=== PATIENT | male | born 1945 | race Caucasian/White ===

== ENCOUNTER 2017-05-24 07:41 | Observation (INO) | payer OTHER ==
[2017-05-24] MEDS ORDERED: diphenhydrAMINE 25 MG CAP PO ONE (07:45)
[2017-05-24] MEDS ORDERED: DIAZEPAM 5 MG TAB PO ONE (07:45)
[2017-05-24] MEDS ORDERED: ASPIRIN EC 325 MG TAB PO ONE (07:45)
[2017-05-24] MEDS ORDERED: FAMOTIDINE 20 MG TAB PO ONE (07:45)
[2017-05-24] MEDS ORDERED: NS 1,000 ML IV ONE (07:45)
--- NOTE | 2017-05-24 07:59 | CPEKG ---
Heart Rate: 58 RR Interval: 1034 P-R Interval: 180 QRSD Interval: 96 QT Interval: 428 QTC Interval: 421 P [place]: 54 QRS [place]: -10 T Wave [place]: 35 EKG Severity - NORMAL ECG - EKG Impression: SINUS RHYTHM Electronically Signed By: Layne Borjas 24-May-2017 12:00:08
[2017-05-24 08:12] LABS: PLATELET COUNT 174 10^3/uL (150-400)
[2017-05-24] MEDS ORDERED: IOPAMIDOL (ISOVUE-370) 150 ML BTL IV ONE (08:19)
[2017-05-24] MEDS ORDERED: MIDAZOLAM 2 MG/2 ML VIAL ONE ×2 (08:19→09:33)
[2017-05-24] MEDS ORDERED: fentaNYL 100 MCG/2 ML INJ ONE ×2 (08:19→09:33)
[2017-05-24] MEDS ORDERED: LIDOCAINE 1% 300 MG/30 ML SDV ONE (08:19)
[2017-05-24 08:21] LABS: INR 0.98 (0.83-1.16); PROTIME(PATIENT) 13.2 SEC (12.0-15.0)
--- NOTE | 2017-05-24 08:24 | PDHPUP ---
History & Physical Update H&P update statement: This history and physical update is based on an assessment of the patient which was completed after admission or registration (within 24 hours), but prior to the surgery/procedure. H&P update: H&P reviewed & patient examined, no change in patient's condition since H&P completed, changes noted
--- NOTE | 2017-05-24 08:25 | PDPROPOC ---
Sedation Plan of Care Sedation Plan of Care: vital signs stable, mental status noted, patient educated of risks, benefits, alternatives, patient can tolerate sedation ASA Classification: ASA 2 Planned drugs: fentanyl, midazolam Mallampati Score: Class 2 Mallampati Reference Image: Patient passed 3-3-2 rule?: Yes
[2017-05-24] MEDS ORDERED: HEPARIN 10,000 UNIT/10 ML MDV (1,000 UNIT/ML) ONE (09:11)
--- NOTE | 2017-05-24 09:22 | PDDXCAT ---
Diagnostic Cath Note - . Date: 05/24/17 Final Operations Technician: [place] Indication: CCC Class III and IV angina on medical treatment - Procedure Access: right groin Procedure: left heart catheterization, coronary angiography, left ventriculogram - Materials Left Heart Cath size: 6F Left Heart Cath materials: standard multipack (JL4, JR4, pigtail) - Findings-Left Heart Catheterization LM: Very short LM. Minor luminal irregularities (<10%) with bifurcation into the LAD and LCX vessels. LAD: Medium diameter vessel. Stented segment with 20% in stent stenosis noted. The principal diagonal in the ostial/proximal segment (just prior to stent) has an 80% stenosis noted. LCX: Medium diameter vessel. There is a critical lesion just prior to a trifurcation into small OM1/OM2 and the remainder of the LCX. RCA: Large, dominant vessel with supply into the PDA and SRINIVAS. There are two distal RCA lesions noted - more critical than than noted on prior angiography. Stenosis is >60%. EDP: 25 mm Hg LVEF: 65 Wall motion: normal Complications: none Estimated blood loss: <50ml Assessment: Critical lesions to the mid LCX (trifurcation) as well as what appears to be proximal to principal diagonal stent. There are two lesions in the distal portion of the RCA (proximal to PDA and SRINIVAS). Normal LVEF is noted. Plan: PCI to the LCX lesion. Would reassess the proximal diag lesion Intervention: Dr. Eduardo Monzon to perform PCI to the LCX lesion
[2017-05-24] MEDS ORDERED: ATROPINE SULFATE 1 MG/10 ML SYR IVP PRN (09:56)
[2017-05-24] MEDS ORDERED: NITROGLYCERIN 0.4 MG BTL SL PRN (09:56)
[2017-05-24] MEDS ORDERED: ONDANSETRON 4 MG/2 ML VIAL IVP PRN (09:57)
[2017-05-24] MEDS ORDERED: LORazepam 2 MG/ML INJ IVP PRN (09:57)
[2017-05-24] MEDS ORDERED: TEMAZEPAM 15 MG CAP PO PRN (09:57)
--- NOTE | 2017-05-24 10:01 | PDCTREPORT ---
Cardiothoracic Procedure Rpt Cardiothoracic Procedure Report: Procedure: PCI and stenting of the circumflex artery. Balloon angioplasty of the principal diagonal. Both in the setting of InStent restenosis and crescendo angina. After reviewing diagnostic angiograms by my partner Dr. Brennan Kessler, I am asked to perform PCI. Patient was anticoagulated with heparin. Therapeutic ACT was confirmed at 289. Using a 6 [place] JL 4.5 guiding catheter left main coronary selectively intubated. Using a 0.014 long Dump Motorman 150 wire the circumflex artery stenosis was was crossed. Lesion was primarily stented with a 2.75 x 12 mm synergy stent. Wire was withdrawn. It was repositioned into the principal diagonal. A wiggle wire was then used to be a safeguard the LAD. The proximal diagonal was primarily balloon angioplastied with a 2.75 x 8 mm balloon. Repeat angiograms revealed VANNA grade 3 flow. Conclusions: Successful PCI and stenting of the circumflex artery and balloon angioplasty of principal diagonalin the setting of ISR. Complications none: Arteriotomy was closed using angio Seal. Patient received 6 mg Versed 105 mcg of fentanyl. Contrast was 275cc for both the diagnostic and therapeutic procedure. Total radiation was 10.3 min of fluoroscopy 1129 mGy. Patient Problems: Problems Problem Status Onset Coronary artery disease Acute Angina effort Acute
--- NOTE | 2017-05-24 10:12 | CPEKG ---
Heart Rate: 63 RR Interval: 952 P-R Interval: 184 QRSD Interval: 92 QT Interval: 428 QTC Interval: 439 P [place]: 59 QRS [place]: -12 T Wave [place]: 19 EKG Severity - NORMAL ECG - EKG Impression: SINUS RHYTHM Electronically Signed By: Layne Borjas 24-May-2017 12:00:18
[2017-05-24] MEDS ORDERED: ACETAMINOPHEN 325 MG TAB PO PRN (16:39)
[2017-05-24 17:04] VITALS: BP 124/85
== END 2017-05-24 17:23 | disposition home or self-care (01) ==
LOC: FCATH 07:41 → F2W 10:13
PROVIDERS: ADMIT Internal Medicine Cardiovascular Disease; ATTEND Internal Medicine Cardiovascular Disease
PROC: B2151ZZ Fluoroscopy of Left Heart using Low Osmolar Contrast (ICD-10-PCS; principal; 2017-05-24)
PROC: 02703ZZ Dilation of Coronary Artery, One Artery, Percutaneous Approach (ICD-10-PCS; principal; 2017-05-24)
PROC: 4A023N7 Measurement of Cardiac Sampling and Pressure, Left Heart, Percutaneous Approach (ICD-10-PCS; principal; 2017-05-24)
PROC: B2111ZZ Fluoroscopy of Multiple Coronary Arteries using Low Osmolar Contrast (ICD-10-PCS; principal; 2017-05-24)
DX: T82.855A Stenosis of coronary artery stent, initial encounter (principal); I25.118 Atherosclerotic heart disease of native coronary artery with other forms of angina pectoris; E78.5 Hyperlipidemia, unspecified; I10 Essential (primary) hypertension; G47.33 Obstructive sleep apnea (adult) (pediatric); Z95.5 Presence of coronary angioplasty implant and graft
CPT/HCPCS: 92920; 93005; 93458; C1725; C1760; C1769; C1874; C1887; C9600; J1644; J2250; J3010; Q9967

== ENCOUNTER 2017-09-14 20:53 | Emergency (ER) | payer OTHER ==
--- NOTE | 2017-09-14 21:12 | CPEKG ---
Heart Rate: 69 RR Interval: 870 P-R Interval: 172 QRSD Interval: 96 QT Interval: 384 QTC Interval: 412 P [place]: 56 QRS [place]: -20 T Wave [place]: 37 EKG Severity - OTHERWISE NORMAL ECG - EKG Impression: SINUS RHYTHM EKG Impression: BORDERLINE LEFT AXIS DEVIATION Electronically Signed By: Ricky Rene 14-Sep-2017 21:24:37
--- NOTE | 2017-09-14 21:25 | EDPHY ---
H & P Stated Complaint: says had angina while walking yesterday and today, told to come to ed Time Seen by Provider: 09/14/17 21:21 HPI/ROS: CHIEF COMPLAINT: Anginal equivalent HISTORY OF PRESENT ILLNESS: The patient presents to the ED after he experienced a a set of symptoms consistent with his prior angina which included some mild chest discomfort and right shoulder pain. It occurred yesterday while he was walking for 0.25 mi. He had a recurrent episode today. The patient states his symptoms are much milder than his initial episode of acute coronary syndrome in 2006 during which she had 3 stents. The patient had an additional stent placed approximately a month ago. The patient denies any fever , cough or congestion. He denies pleuritic chest pain. He denies asymmetric calf pain or swelling. The patient is currently symptom free. REVIEW OF SYSTEMS: A comprehensive 10 point review of systems is otherwise negative aside from elements mentioned in the history of present illness. Source: Patient Exam Limitations: No limitations - Medical/Surgical History Hx Asthma: No Hx Chronic Respiratory Disease: No Hx Diabetes: No Hx Cardiac Disease: Yes Hx Renal Disease: No Hx Cirrhosis: No Hx Alcoholism: No Hx HIV/AIDS: No Hx Splenectomy or Spleen Trauma: No Other PMH: [place] Stents, hyperlipidemia, hypertension, SEAN, arthritis (generalized) , restless leg synd - Social History Smoking Status: Former smoker - Physical Exam Exam: General Appearance: Alert, no distress Eyes: Pupils equal and round no pallor or injection ENT, Mouth: Mucous membranes moist Respiratory: There are no retractions, lungs are clear to auscultation Cardiovascular: Regular rate and rhythm Gastrointestinal: Abdomen is soft and nontender, no masses, bowel sounds normal Neurological: A&O, normal motor function, normal sensory exam, normal cranial nerves Skin: Warm and dry, no rashes Musculoskeletal: Neck is supple nontender Extremities: symmetrical, full range of motion Psychiatric: Patient is oriented X 3, there is no agitation Constitutional: Initial Vital Signs Temperature (C) 36.7 C 09/14/17 20:56 Heart Rate 71 09/14/17 20:56 Respiratory Rate 16 09/14/17 20:56 Blood Pressure 134/82 H 09/14/17 20:56 O2 Sat (%) 94 09/14/17 20:56 O2 Delivery Mode Room Air Allergies/Adverse Reactions: No Known Allergies Allergy (Verified 09/14/17 21:03) Home Medications: Medication Instructions Recorded Clopidogrel Bisulfate [Plavix (*)] 75 mg PO DAILY 05/17/17 Glucosamine Sulfate [Glucosamine 500 mg PO DAILY 05/17/17 Sulfate 500 MG (*)] Metoprolol Tartrate [Lopressor 25 25 mg PO BID 05/17/17 mg (*)] [place]-3 Fatty Acids [Fish Oil 1000 1,000 mg PO DAILY 05/17/17 mg (*)] Simvastatin [Zocor] 40 mg PO DAILY 05/17/17 Tadalafil [Cialis] 5 mg PO DAILY PRN 05/17/17 Tamsulosin HCl [Flomax 0.4 MG (*)] 0.4 mg PO DAILY 05/17/17 Aspirin [Aspirin 325 mg (*)] 325 mg PO DAILY #30 tab 05/24/17 Gabapentin 09/14/17 Medical Decision Making - Diagnostics EKG Interpretation: EKG: Complete interpretation has been separately recorded in the [employer] archive. Summary impression: Sinus rhythm, rate 69 ED Course/Re-evaluation: The patient presents to the ED after a mild episode of chest pain right shoulder discomfort reminiscent of his prior angina. The patient arrives and is noted to have a normal EKG. The patient's troponin is normal. I had a lengthy discussion with the patient about his symptoms. I did tell the patient given his history of coronary artery disease and recurrent anginal symptoms I recommended admission to the hospital for observation. The patient would like to be discharged home and follow up with his dwarf tree grower. He does understand that we have not fully exclude the presence of progressive coronary artery disease or acute coronary syndrome. The patient is comfortable returning to the emergency department for the development of any chest pain or should he reconsider his decision not to be admitted to the hospital. The patient will contact his regular with dwarf tree grower Dr. Kessler tomorrow to schedule a follow-up visit. Differential Diagnosis: Differential diagnosis considered includes myocardial infarction, acute coronary syndrome, esophageal spasm, pericarditis, arrhythmia - Data Points Laboratory Results: Laboratory Results 09/14/17 21:21 09/14/17 21:21 09/14/17 09/14/17 09/14/17 21:25 21:21 21:21 WBC 4.90 10^3/uL 10^3/uL (3.80-9.50) RBC 5.20 10^6/uL 10^6/uL (4.40-6.38) Hgb 15.3 g/dL g/dL (13.7-17.5) Hct 44.9 % % (40.0-51.0) MCV 86.3 fL fL (81.5-99.8) MCH 29.4 pg pg (27.9-34.1) MCHC 34.1 g/dL g/dL (32.4-36.7) RDW 13.6 % % (11.5-15.2) Plt Count 189 10^3/uL 10^3/uL (150-400) MPV 9.5 fL fL (8.7-11.7) Neut % (Auto) 53.5 % % (39.3-74.2) Lymph % (Auto) 32.0 % % (15.0-45.0) [place] % (Auto) 10.2 % % (4.5-13.0) Eos % (Auto) 3.5 % % (0.6-7.6) Baso % (Auto) 0.6 % % (0.3-1.7) Nucleat RBC Rel Count 0.0 % % (0.0-0.2) Absolute Neuts (auto) 2.62 10^3/uL 10^3/uL (1.70-6.50) Absolute Lymphs (auto) 1.57 10^3/uL 10^3/uL (1.00-3.00) Absolute Monos (auto) 0.50 10^3/uL 10^3/uL (0.30-0.80) Absolute Eos (auto) 0.17 10^3/uL 10^3/uL (0.03-0.40) Absolute Basos (auto) 0.03 10^3/uL 10^3/uL (0.02-0.10) Absolute Nucleated RBC 0.00 10^3/uL 10^3/uL (0-0.01) Immature Gran % 0.2 % % (0.0-1.1) Immature Gran # 0.01 10^3/uL 10^3/uL (0.00-0.10) Sodium 141 mEq/L mEq/L (135-145) Potassium 4.0 mEq/L mEq/L (3.3-5.0) Chloride 104 mEq/L mEq/L (97-110) Carbon Dioxide 26 mEq/l mEq/l (22-31) Anion Gap 11 mEq/L mEq/L (8-16) BUN 23 mg/dL mg/dL (7-23) Creatinine 0.9 mg/dL mg/dL (0.7-1.3) Estimated GFR > 60 Glucose 83 mg/dL mg/dL (70-100) Calcium 9.3 mg/dL mg/dL (8.5-10.4) POC Troponin I 0.03 ng/mL ng/mL (0.00-0.08) Point of Care Test Results: Chemistry 09/14/17 21:25 POC Troponin I 0.03 ng/mL ng/mL (0.00-0.08) Departure - Departure Disposition: Home, Routine, Self-Care Clinical Impression: Chest pain Condition: Good Instructions: Chest Pain (ED) Additional Instructions: 1. Based upon the testing done in the Emergency Department today we see no evidence of a heart attack. You were offered admission to the hospital given year history of coronary artery disease and have of declined. 2. We are unable to fully exclude coronary artery disease based upon the testing available in the Emergency Department. 3. For this reason, we would like you to be seen by cardiology for consideration of additional testing within the next 3 days. 4. Please contact the dwarf tree grower you have been referred to schedule this appointment as soon as possible. Their offices are typically open from 8:30am- 5pm M-F. 5. Please return to the Emergency Department immediately for any recurrent chest pain, difficulty breathing, other concerns or should you reconsider your decision not to be hospitalized this evening. Referrals: Brennan Kessler MD [Medical Doctor] - As per Instructions
[2017-09-14 21:33] LABS: PLATELET COUNT 189 10^3/uL (150-400)
[2017-09-14 22:42] VITALS: BP 133/86
== END 2017-09-14 22:42 | disposition home or self-care (01) ==
DX: I20.9 Angina pectoris, unspecified (principal); Z95.5 Presence of coronary angioplasty implant and graft; I10 Essential (primary) hypertension; E78.5 Hyperlipidemia, unspecified; Z87.891 Personal history of nicotine dependence
CPT/HCPCS: 84484-PO